=== PATIENT | female | born 2000 | race Hispanic/Latino ===

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

== ENCOUNTER 2021-03-31 10:13 | Emergency (ER) | payer SELFPAY | END 2021-03-31 11:45 | disposition home or self-care (01) | LOC: MADERS 10:13 | DX: S62.635A Displaced fracture of distal phalanx of left ring finger, initial encounter for closed fracture (principal); W22.8XXA Striking against or struck by other objects, initial encounter; Y99.0 Civilian activity done for income or pay | CPT/HCPCS: 29125 ==